=== PATIENT | male | born 1955 | race Caucasian/White ===

== ENCOUNTER 2017-03-16 07:39 | Day surgery (SDC) | payer BC ==
[2017-03-15 15:08] VITALS: BMI 32.1
[2017-03-16] MEDS ORDERED: PROPOFOL 20 ML ONE ×2 (08:36)
[2017-03-16 09:20] VITALS: TEMP 98.2
[2017-03-16 14:21] VITALS: BP 124/67; PULSE 83
--- NOTE | 2017-03-19 10:35 | PATH ---
Surgical Pathology Report Patient Name: KAYKAY PORTILLO [facility]. Rec. #: [id number] /Age/Gender: 1955 (Age: 61) / M Account: [id number] Location: U-ENDOSCOPY Taken: 03/16/2017 Received: 03/16/2017 Reported: 03/19/2017 Physicians: Romeo Michele M.D. Specimen(s) Received A: BX ILEUM B: BX CECUM C: BIOPSY RIGHT COLON D: BX TRANSVERSE COLON E: BX DESCENDING COLON F: BIOPSY SIGMOID COLON G: BIOPSY RECTAL POLYP H: BX RECTUM Clinical History Surveillance ulcerative colitis Quiescent ulcerative colitis, rectal polyp Final Diagnosis A. ILEUM, BIOPSY: SMALL INTESTINAL MUCOSA WITH NO PATHOLOGIC CHANGES. NO ACTIVE INFLAMMATION, ARCHITECTURAL DISTORTION, GRANULOMATA, OR DYSPLASIA IDENTIFIED. B. COLON, CECUM, BIOPSY: COLONIC MUCOSA WITH NO PATHOLOGIC CHANGES. NO ACTIVE COLITIS, ARCHITECTURAL DISTORTION, GRANULOMATA, OR DYSPLASIA IDENTIFIED. NO MICROSCOPIC COLITIS IDENTIFIED (NO LYMPHOCYTIC OR COLLAGENOUS COLITIS IDENTIFIED). C. COLON, RIGHT, BIOPSY: COLONIC MUCOSA WITH FOCAL HYPERPLASTIC CHANGES. NO ACTIVE COLITIS, GRANULOMATA, OR DYSPLASIA IDENTIFIED. NO MICROSCOPIC COLITIS IDENTIFIED (NO LYMPHOCYTIC OR COLLAGENOUS COLITIS IDENTIFIED). D. COLON, TRANSVERSE, BIOPSY: COLONIC MUCOSA WITH NO PATHOLOGIC CHANGES. NO ACTIVE COLITIS, ARCHITECTURAL DISTORTION, GRANULOMATA, OR DYSPLASIA IDENTIFIED. NO MICROSCOPIC COLITIS IDENTIFIED (NO LYMPHOCYTIC OR COLLAGENOUS COLITIS IDENTIFIED). E. COLON, DESCENDING, BIOPSY: COLONIC MUCOSA WITH NO PATHOLOGIC CHANGES. NO ACTIVE COLITIS, ARCHITECTURAL DISTORTION, GRANULOMATA, OR DYSPLASIA IDENTIFIED. NO MICROSCOPIC COLITIS IDENTIFIED (NO LYMPHOCYTIC OR COLLAGENOUS COLITIS IDENTIFIED). F. COLON, SIGMOID, BIOPSY: COLONIC MUCOSA WITH NO PATHOLOGIC CHANGES. NO ACTIVE COLITIS, ARCHITECTURAL DISTORTION, GRANULOMATA, OR DYSPLASIA IDENTIFIED. NO MICROSCOPIC COLITIS IDENTIFIED (NO LYMPHOCYTIC OR COLLAGENOUS COLITIS IDENTIFIED). G. RECTUM, POLYP, BIOPSY: HYPERPLASTIC POLYP H. RECTUM, BIOPSY: COLONIC MUCOSA WITH NO PATHOLOGIC CHANGES. NO ACTIVE COLITIS, ARCHITECTURAL DISTORTION, GRANULOMATA, OR DYSPLASIA IDENTIFIED. NO MICROSCOPIC COLITIS IDENTIFIED (NO LYMPHOCYTIC OR COLLAGENOUS COLITIS IDENTIFIED). Electronically Signed Dario Leung M.D. Gross Description A. Received in formalin, labeled "biopsy ileum" is a pierre, irregular portion of soft tissue measuring 0.4 cm. in greatest dimension. The specimen is submitted in toto in one cassette. B. Received in formalin, labeled "biopsy cecum" are 2 pierre, irregular portions of soft tissue measuring 0.2 cm. in greatest dimension. The specimens are submitted in toto in one cassette. C. Received in formalin, labeled "biopsy right colon" are multiple pierre, irregular portions of soft tissue measuring 0.2-0.4 cm. in greatest dimension. The specimens are submitted in toto in one cassette. D. Received in formalin, labeled "biopsy transverse colon" are 6 pierre, irregular portions of soft tissue measuring 0.2-0.3 cm. in greatest dimension. The specimens are submitted in toto in one cassette. E. Received in formalin, labeled "biopsy descending colon" are 4 pierre, irregular portions of soft tissue measuring 0.2 cm. in greatest dimension. The specimens are submitted in toto in one cassette. F. Received in formalin, labeled "biopsy sigmoid colon" are 4 pierre, irregular portions of soft tissue measuring 0.2-0.3 cm. in greatest dimension. The specimens are submitted in toto in one cassette. G. Received in formalin, labeled "biopsy rectal polyp" are 4 pierre, irregular portions of soft tissue measuring 0.1-0.2 cm. in greatest dimension. The specimens are submitted in toto in one cassette. H. Received in formalin, labeled "biopsy rectum" are 2 pierre, irregular portions of soft tissue measuring 0.2-0.4 cm. in greatest dimension. The specimens are submitted in toto in one cassette. [facility]03/16/2017 [facility]03/16/2017
== END 2017-03-16 10:10 | disposition home or self-care (01) ==
LOC: JASU-ENDO 07:39
PROVIDERS: ATTEND Internal Medicine Gastroenterology
PROC: 0DBE8ZX Excision of Large Intestine, Via Natural or Artificial Opening Endoscopic, Diagnostic (ICD-10-PCS; 2017-03-16)
PROC: 0DBP8ZX Excision of Rectum, Via Natural or Artificial Opening Endoscopic, Diagnostic (ICD-10-PCS; principal; 2017-03-16 08:30)
DX: Z86.010 Personal history of colon polyps (principal); K51.90 Ulcerative colitis, unspecified, without complications; K62.1 Rectal polyp; K64.8 Other hemorrhoids; K57.30 Diverticulosis of large intestine without perforation or abscess without bleeding
CPT/HCPCS: 88305-TC

== ENCOUNTER 2017-08-02 10:35 | Day surgery (SDC) | payer BC ==
[2017-07-26 11:50] VITALS: BMI 31.5
[2017-08-02] MEDS ORDERED: PROPOFOL 20 ML ONE ×2 (14:06→14:07)
[2017-08-02] MEDS ORDERED: MIDAZOLAM HCL 2 MG/2 ML SINGLE DOSE VIAL ONE (14:06)
[2017-08-02] MEDS ORDERED: LIDOCAINE HCL/PF 2% SDV 5ML VIAL ONE (14:07)
[2017-08-02] MEDS ORDERED: BUPIVACAINE HCL 0.25% 125 MG/50 ML VIAL ONE (14:17)
[2017-08-02] MEDS ORDERED: EPINEPHrine 1:1,000 1 MG/1 ML - 30ML VIAL (INJECTION) ONE (14:17)
[2017-08-02] MEDS ORDERED: CLINDAMYCIN PHOSPHATE 600 MG/4 ML VIAL ONE ×2 (14:31→14:34)
[2017-08-02] MEDS ORDERED: oxyCODONE HCL 5 MG TABLET PO PRN (14:48)
[2017-08-02] MEDS ORDERED: ONDANSETRON 4 MG/2 ML VIAL IVPUSH PRN (14:48)
[2017-08-02] MEDS ORDERED: BUPIVACAINE HCL/PF 0.25% (2.5MG/ML) 10 ML VIAL IJ ONE (14:49)
[2017-08-02] MEDS ORDERED: LACTATED RINGERS SOLUTION 1,000 ML IV SCH (15:00)
--- NOTE | 2017-08-02 15:13 | OP ---
Operative Note - Note: Operative Date: 08/02/17 Pre-Operative Diagnosis: right knee medial, lateral meniscal tears Operation: right knee arthroscopy with partial medial, partial lateral meniscectomy Post-Operative Diagnosis: Same as Pre-op Anesthesia: General Estimated Blood Loss (mls): 20 Operative Report Dictated: Yes
[2017-08-02 15:32] VITALS: TEMP 98.1
--- NOTE | 2017-08-02 16:34 | OP ---
DATE OF OPERATION: 08/02/2017 PREOPERATIVE DIAGNOSIS: Right knee medial and lateral meniscal tears. POSTOPERATIVE DIAGNOSIS: Right knee medial and lateral meniscal tears. PROCEDURE: Right knee arthroscopy with partial medial, partial lateral meniscectomy. SURGEON: Checo Uriostegui MD ANESTHESIA: General. POSTOPERATIVE CONDITION: Stable. COMPLICATIONS: None. INDICATIONS: This is a pleasant gentleman suffering from right knee pain. MRI demonstrated medial and lateral meniscal tears in the setting of some mild osteoarthritis. Treatment options including nonoperative versus operative management were discussed. Operative risks were reviewed in detail including bleeding, infection, neurovascular injury, need for further surgery, postoperative pain and stiffness, progression of osteoarthritis. We discussed medical risks such as heart attack, stroke, DVT, PE, and . I addressed all the patient's questions. He voiced understanding and elected to proceed. DESCRIPTION OF PROCEDURE: Patient was brought to the operating room where general anesthesia was administered. The right lower extremity was prepped and draped in the usual sterile fashion. A preoperative dose of antibiotics was given, and the usual timeout procedure was performed. At this point, the arthroscopic portals were marked out. Then, we injected subcutaneously with 0.25% Marcaine. An 11 blade was now used to establish the lateral portal. The arthroscope was passed into the knee. Examination of the patellofemoral joint demonstrated a thickened and synovitis-filled plica extending into the joint. The arthroscope was now passed down to the notch. Visualizing the patella and the trochlea demonstrated superficial streak wear of the articular cartilage. In the notch, the ACL was visualized to be intact beneath a thick ligamentum mucosum. The medial portal was established under spinal needle localization now. The ligamentum mucosum was debrided. This was done to allow better visualization. The medial plica was resected as well. The medial compartment was now inspected. There was deep fissuring without full-thickness cartilage loss of the femoral condyle. There was superficial fraying and mild fissuring of the tibial surface. There was a complex tear that involved the posterior horn and body of the medial meniscus. Utilizing a combination of meniscal biters and a shaver, the meniscal tear was debrided down to a stable base. The arthroscope was now passed back across the notch into the lateral compartment. Here, there was a small free edge tear of the body of the lateral meniscus. Utilizing the shaver alone, this was debrided down to a stable base. The articular surfaces here showed a deep fissure in the tibial side, again not full thickness and some superficial fraying of the lateral side on the femur. Excess fluid was now withdrawn from the knee. The portals were sutured using 3-0 nylon. Sterile dressings were placed. The patient was extubated and transferred to the recovery room in stable condition. Anel RAYMOND/[id number]
[2017-08-02 16:56] VITALS: BP 129/76; PULSE 72
== END 2017-08-02 16:58 | disposition home or self-care (01) ==
LOC: FASU 10:35
PROVIDERS: ATTEND Orthopaedic Surgery Sports Medicine
PROC: 0SBC4ZZ Excision of Right Knee Joint, Percutaneous Endoscopic Approach (ICD-10-PCS; 2017-08-02)
PROC: 0SBC4ZZ Excision of Right Knee Joint, Percutaneous Endoscopic Approach (ICD-10-PCS; principal; 2017-08-02 14:40)
DX: S83.241A Other tear of medial meniscus, current injury, right knee, initial encounter (principal); S83.281A Other tear of lateral meniscus, current injury, right knee, initial encounter; X58.XXXA Exposure to other specified factors, initial encounter; Y93.89 Activity, other specified; Y92.89 Other specified places as the place of occurrence of the external cause

== ENCOUNTER 2019-04-23 08:39 | Day surgery (SDC) | payer BC ==
[2019-04-15 18:49] VITALS: BMI 31.5
[2019-04-23] MEDS ORDERED: MIDAZOLAM HCL 2 MG/2 ML SINGLE DOSE VIAL ONE ×2 (10:26)
[2019-04-23] MEDS ORDERED: PROPOFOL 20 ML ONE (10:31)
[2019-04-23] MEDS ORDERED: BUPIVACAINE HCL/PF 0.25% (2.5MG/ML) 10 ML VIAL IJ ONE (10:50)
[2019-04-23] MEDS ORDERED: KETOROLAC TROMETHAMINE 30 MG/1 ML VIAL ONE (11:11)
[2019-04-23] MEDS ORDERED: oxyCODONE HCL 5 MG TABLET PO PRN (11:23)
[2019-04-23] MEDS ORDERED: ONDANSETRON 4 MG/2 ML VIAL IVPUSH PRN (11:23)
[2019-04-23] MEDS ORDERED: LACTATED RINGERS SOLUTION 1,000 ML IV SCH (11:30)
[2019-04-23] MEDS ORDERED: KETOROLAC TROMETHAMINE 30 MG/1 ML VIAL IVPUSH ONE (11:31)
[2019-04-23] MEDS ORDERED: BUPIVACAINE HCL 0.25% 125 MG/50 ML VIAL ONE (11:46)
[2019-04-23 12:24] VITALS: BP 123/76; PULSE 68
[2019-04-23 12:51] VITALS: TEMP 98
--- NOTE | 2019-04-28 15:31 | OP ---
DATE OF OPERATION: 04/23/2019 PREOPERATIVE DIAGNOSIS: Right long trigger finger. POSTOPERATIVE DIAGNOSIS: Right long trigger finger. OPERATIVE PROCEDURE: Right long trigger finger release. ANESTHESIA: Local with sedation. COMPLICATIONS: None. ESTIMATED BLOOD LOSS: Minimal. INDICATIONS FOR PROCEDURE: The patient is a 64-year-old male with the above finding, indicated for operative treatment. The risks, benefits and alternatives were discussed with the patient at length. Proper informed consent was obtained. PROCEDURE: After proper identification of patient and correct operative site, patient was brought to the operating room, placed supine on the table, prominences well padded. Sedation and local anesthesia were given. Right upper extremity was prepped and draped in usual sterile fashion. Well-padded tourniquet was placed as well as a sterile prep. Esmarch bandage was used to exsanguinate the right upper extremity. The tourniquet was inflated to 250 mmHg. Longitudinal incision was made over the A1 kamila of the long finger. Incision was taken sharply through skin, with blunt and sharp dissection through subcutaneous tissues. A1 kamila was divided and patient was asked to flex and extend his finger and no further triggering was noted. The wound was irrigated and repaired with 5-0 fast-absorbing plain gut suture. Sterile dressings were applied. Patient was reversed from anesthesia and brought to recovery room in stable condition. He tolerated the procedure well. STEPH PALACIOS M.D. [id number]
== END 2019-04-23 12:45 | disposition home or self-care (01) ==
LOC: FASU 08:39
PROVIDERS: ATTEND Orthopaedic Surgery Hand Surgery
PROC: 0LN70ZZ Release Right Hand Tendon, Open Approach (ICD-10-PCS; principal; 2019-04-23 10:42)
DX: M65.331 Trigger finger, right middle finger (principal)
CPT/HCPCS: 94760